=== PATIENT | male | born 1980 | race Caucasian/White ===

== ENCOUNTER 2024-12-02 06:31 | Day surgery (SDC) | payer MEDICAID, SELFPAY ==
[2024-12-02 06:50] VITALS: BP 133/89; PULSE 75; RESP 18; TEMP 36.1; O2SAT 98; BMI 34.1
--- NOTE | 2024-12-02 06:58 | ANES.PREANE2 ---
Pre-Anesthetic Assessment Height/Weight: Height 5 ft 5 in Weight 205 lb Temp Pulse Resp BP Pulse Ox O2 Del Method 97.0 F L 75 18 133/89 98 Room Air 12/02/24 06:50 12/02/24 06:50 12/02/24 06:50 12/02/24 06:50 12/02/24 06:50 12/02/24 06:50 Preop Diagnosis: GERD Operation Date: 12/02/24 08:00 Proposed Procedures p EGD EGD with Biopsy 75163 R12(Not Applicable) - Selvin Patel MD Was Beta Irene taken within 24 hours: N/A Was Clonidine taken within 24 hours: N/A Last intake: Intake Last Liquid Date 12/02/24 Last Liquid Time 20:00 Last Solid Date 12/01/24 Last Solid Time 19:00 Social Tobacco and No alcohol Exam alert, oriented x 3, clear to auscultation bilaterally and regular rate & rhythm Airway Submandibular: within normal limits Cervical ROM: within normal limits Mallampati: Class III Comments: Comments: Edentulous Anesthetic Plan ASA status: 3 Anesthesia: MAC Other: No prior issues with anesthesia NPO since yesterday morning History of hypertension on amlodipine and lisinopril GERD, on Protonix Patient smokes marijuana Plan for MAC anesthesia Medications/Allergies Home Medications ?Medication ?Instructions ?Recorded ?Confirmed ?Last Taken ?Type lisinopril 20 mg tablet 20 mg PO DAILY 10/31/24 12/02/24 12/01/24 History pantoprazole 40 mg tablet,delayed 40 mg PO BID 30 days #60 tabs 10/31/24 12/02/24 12/02/24 Rx release (Protonix) sucralfate 100 mg/mL oral 10 ml PO BID 30 days #840 mL 10/31/24 12/02/24 12/01/24 Rx suspension amlodipine 10 mg tablet 10 mg PO DAILY 11/26/24 12/02/24 12/02/24 History Allergies Allergy/AdvReac Type Severity Reaction Status Date / Time No Known Allergies Allergy Verified 12/02/24 06:49 [facility] Anesthesia Medical History (Updated 10/31/24 @ 11:59 by Selvin Patel MD) Heartburn Social History Smoking and tobacco/nicotine status: current every day tobacco/nicotine user (/ PPD)
--- NOTE | 2024-12-02 07:14 | ANES.PREANE2 ---
Pre-Anesthetic Assessment Height/Weight: Height 1.65 m Weight 92.986 kg Temp Pulse Resp BP Pulse Ox O2 Del Method 97.0 F L 75 18 133/89 98 Room Air 12/02/24 06:50 12/02/24 06:50 12/02/24 06:50 12/02/24 06:50 12/02/24 06:50 12/02/24 06:50 Preop Diagnosis: GERD Operation Date: 12/02/24 08:00 Proposed Procedures p EGD EGD with Biopsy [id number] R12(Not Applicable) - Selvin Patel MD Last intake: Intake Last Liquid Date 12/02/24 Last Liquid Time 20:00 Last Solid Date 12/01/24 Last Solid Time 19:00 Exam oriented x 3 Airway Submandibular: within normal limits Cervical ROM: within normal limits Mallampati: Class II Dentition: full History/ROS No significant history except as noted Pulmonary None reported CV/HEM Hypertension None reported Hepatic None reported GI Gastroesophageal Reflux Disease Metabolic None reported Musc/skel None reported Neuropsych None reported Anesthetic Plan ASA status: 2 Medications/Allergies Home Medications ?Medication ?Instructions ?Recorded ?Confirmed ?Last Taken ?Type lisinopril 20 mg tablet 20 mg PO DAILY 10/31/24 12/02/24 12/01/24 History pantoprazole 40 mg tablet,delayed 40 mg PO BID 30 days #60 tabs 10/31/24 12/02/24 12/02/24 Rx release (Protonix) sucralfate 100 mg/mL oral 10 ml PO BID 30 days #840 mL 10/31/24 12/02/24 12/01/24 Rx suspension amlodipine 10 mg tablet 10 mg PO DAILY 11/26/24 12/02/24 12/02/24 History Allergies Allergy/AdvReac Type Severity Reaction Status Date / Time No Known Allergies Allergy Verified 12/02/24 06:49 Current Medications Generic Name Dose Route Start Last Admin Trade Name Freq PRN Reason Stop Dose Admin Sodium Chloride 1,000 mls @ 15 mls/hr 12/02/24 06:41 12/02/24 07:05 Sodium Chloride 0.9% IV 12/03/24 06:40 15 mls/hr .Q24H PRN Administration COLONOSCOPY FLUIDS PFSH Anesthesia Medical History (Updated 10/31/24 @ 11:59 by Selvin Patel MD) Heartburn Social History Smoking and tobacco/nicotine status: current every day tobacco/nicotine user (1/3 PPD)
--- NOTE | 2024-12-02 07:44 | W.PM.OPSFHP ---
Same Day Surgery H&P Indication for Procedure/HPI DATE OF PROCEDURE: December 02, 2024 CHIEF COMPLAINT/INDICATIONFOR SURGICAL PROCEDURE: GERD, gastric mass PREOP DIAGNOSIS: GERD, gastric mass PLANNED PROCEDURE: Operation Date: 12/02/24 08:00 Proposed Procedures p EGD EGD with Biopsy [id number] R12(Not Applicable) - Selvin Patel MD Medications/Allergies* Home Medications ?Medication ?Instructions ?Recorded ?Confirmed ?Type lisinopril 20 mg tablet 20 mg PO DAILY 10/31/24 12/02/24 History amlodipine 10 mg tablet 10 mg PO DAILY 11/26/24 12/02/24 History Allergies/Adverse Reactions Allergy/AdvReac Type Severity Reaction Status Date / Time No Known Allergies Allergy Verified 12/02/24 06:49 Current Medications: Generic Name Dose Route Start Last Admin Trade Name Freq PRN Reason Stop Dose Admin Sodium Chloride 1,000 mls @ 15 mls/hr 12/02/24 06:41 12/02/24 07:05 Sodium Chloride 0.9% IV 12/03/24 06:40 15 mls/hr .Q24H PRN Administration COLONOSCOPY FLUIDS Pertinent History/Comorbid Conditions* Medical History (Updated 10/31/24 @ 11:59 by Selvin Patel MD) Heartburn Social History Smoking and tobacco/nicotine status: current every day tobacco/nicotine user (1/3 PPD) Pertinent Exam Findings alert, oriented x 3, clear to auscultation bilaterally, regular rate & rhythm and procedure specific exam findings abdomen soft, nt, nd Recommendations Risks and benefits of procedure reviewed and Patient/family agree to proceed Surgery/Procedure today Coding Level of Care Code Acute Code for Chg Fwd
[2024-12-02 08:00] VITALS: BP 120/78; PULSE 75; RESP 18; TEMP 36.4; O2SAT 94
[2024-12-02 08:06] VITALS: BP 123/78; PULSE 72; RESP 18; O2SAT 95
[2024-12-02 08:17] VITALS: BP 126/78; PULSE 76; RESP 18; O2SAT 98
--- NOTE | 2024-12-02 08:24 | ANE.PACU2 ---
Inpatient post-anesthesia follow up: Airway intact: Yes Vital signs: Temperature 97.5 F Pulse Rate 76 Respiratory Rate 18 Blood Pressure 126/78 Pulse Oximetry 98 Oxygen Delivery Me thod Room Air Oxygen Flow Rate Fraction of Inspir ed Oxygen Hydration adequate: Yes Nausea and vomiting: No Pain level: 1 Mental status: Baseline
== END 2024-12-02 08:24 | disposition home or self-care (01) ==
PROVIDERS: PCP Nurse Practitioner Family; Visit Provider Student in an Organized Health Care Education/Training Program
PROC: 0DJ08ZZ Inspection of Upper Intestinal Tract, Via Natural or Artificial Opening Endoscopic (ICD-10-PCS; principal; 2024-12-02 08:00)
DX: K21.9 Gastro-esophageal reflux disease without esophagitis (principal); D13.1 Benign neoplasm of stomach; K29.70 Gastritis, unspecified, without bleeding; I10 Essential (primary) hypertension; F12.90 Cannabis use, unspecified, uncomplicated; F17.210 Nicotine dependence, cigarettes, uncomplicated; R12 Heartburn
CPT/HCPCS: 43239; 88305; J2704; J7030